=== PATIENT | female | born 2005 | race Two or more races ===

== ENCOUNTER 2025-10-13 23:24 | Emergency (ER) | payer OTHER, SELFPAY ==
--- OUTSIDE RECORDS SUMMARY | 2025-10-11 11:15 | XMS_ITS | Encounter Summary ---
Author Organization [facility] Address [address] [facility] [address] [place] [address] Phone Care Team Providers Care Yard Coupler Name Role Phone Marium Yates MD Primary Care Provider [phone] Encounter Details Date Type Department Care Team ([facility] st Contact Info) Description 10/11/2025 11:15 AM EST Pre-Admission Testing Pre Procedure Evaluation 30 [place] [address] Sajan Riley MD [address] [address] [email or web address] Social History Tobacco Use Types Packs/Day Years Used Date Smoking Tobacco: Never Smokeless Tobacco: Never Alcohol Use Standard Drinks/Week Comments Never 0 (1 standard drink = 0.6 oz pur e alcohol) Education Answer Date Recorded Are you interested in more education? Not on sushila e 02/19/2023 Are you concerned about learning? Not on file 02/19/2023 No 02/19/2023 No 02/19/2023 Digital Access Answer Date Recorded No 03/20/2023 No 03/20/2023 Reliable internet access at home? Not on file 03/20/2023 Device with a working camera? Not on file Intimate Partner Violence Answer Date R ecorded Are you denied basic needs s uch as food, clothing, or medical care? No 10/12/2025 In the past 12 months have y ou been in a relationship with a person who hurts, threatens, or tries to control you? No 10/12/2025 Are you denied basic needs s uch as food, clothing, or medical care? No 10/12/2025 In the past 12 months have y ou been in a relationship with a person who hurts, threatens, or tries to control you? No 10/12/2025 Comments No Sex and Gender Information Value Date Recorded Sex Assigned at Female 07/18/2020 8:21 PM EDT Legal Sex Female 8:44 PM EDT Gender Identity Female 07/18/2020 8:21 PM EDT Sexual Orientation Not on file documented as of this encounter Progress Notes * Charleen Bai RN - 10/11/2025 11:15 AM EST This preprocedure call occurred on October 12, 2025. Reviewed prep instructions. All questions answered. Ride home arranged. Patient verbalized understanding * Charleen Bai RN - 10/11/2025 11:15 AM EST States she doesn't know what she did with her prep instructions-she is not on the patient portal wants them sent to her-office called talked to Niyah documented in this encounter Plan of Treatment Upcoming Encounters Date Type Department Care Team (Latest Contact Info) Description 10/29/2025 Procedure Pass [facility] Admitting Dept Virtual Department [address] [place] [address] 10/29/2025 10:15 AM EST Hospital Encounter [facility] Virtual Department [address] [place] [address] Sajan Riley MD [address] [place] [address] 10/29/2025 10:15 AM EST - 10/29/2025 10:30 AM EST Surgery [facility] Admitting Dept Virtual Department [address] [place] [address] Sajan Riley MD [address] [address] COLONOSCOPY 12/25/2025 9:45 AM EST Office Visit [facility] 10 [place] [address] Ruby Barbosa PA-C [address] [address] [email or web address] Scheduled Procedures Name Priority Associated Diagnoses Date/Ti ma COLONOSCOPY Internal hemorrhoids with complication 10/29/2025 10:15 AM EST documented as of this encounter Visit Diagnoses Not on filedocumented in this encounter Care Teams Yard Coupler Relationship Specialty Start Date End Date Marium Yates MD [address] [place] [address], [facility] 2 [place] [address] PCP - General Pediatrics 07/18/20 documented as of this encounter Additional Source Comments The information contained in this document represents components of the legal health record. It is not the complete legal health record.[facility]
--- NOTE | ~2025-10-13 | US_ITS ---
CLINICAL HISTORY: PAIN, R O TORSION US pelvis transvaginal and transabdominal with Doppler ultrasound Indication: Pain, right Comparison: None provided LMP 09/21/2025 Findings: Transabdominal and transvaginal scanning performed. Anteverted uterus is 6.9 x 4.1 x 4.2 cm. Normal myometrium. Endometrium 7 mm thickness. Right ovary 5.4 x 4.2 x 5.4 cm. There is a 4.9 cm right ovarian complex cyst Left ovary 4.9 x 3.8 x 4.6 cm cm. Normal color Doppler arterial and venous flow of both ovaries. No free fluid. IMPRESSION: 1. Normal pelvic ultrasound 2. Complex 4.9 cm right ovarian cystic lesion without evidence for right ovarian torsion. Recommend follow-up evaluation to document resolution. This document has been electronically signed by: Michael Velazquez III, MD PHD on 10/14/2025 04:40:50
[2025-10-13 23:37] VITALS: BP 127/71; PULSE 104; RESP 16; TEMP 36.6; O2SAT 98; BMI 36.9
[2025-10-14 00:05] LABS: MANUAL DIFF FLAG NO
[2025-10-14 00:11] LABS: Hematocrit 40.1 % (37.0-47.0); Hemoglobin 14.0 g/dl (12.0-16.0); Imm Gran Abs Auto 0.03 X10*3/uL (0.00-0.03); Imm Gran Pct Auto 0.3 % (0.0-0.4); Lymphocytes Absolute Auto 2.9 X10*3/uL (1.2-4.9); Mean Corpuscular HGB Conc 34.9 g/dl (31.0-35.0); Mean Corpuscular Hemoglobin 30.9 pg (27.0-33.0); Mean Corpuscular Volume 88.5 fL (80.0-98.0); NRBC Abs Auto 0.000 X10*3/uL (0.0-0.012); NRBC Pct Auto 0.0 /100WBC (0.0-0.2); Platelet Count 305 X10*3/uL (160-400); Red Blood Count 4.53 X10*6/uL (4.20-5.50); White Blood Count 11.0 X10*3/uL (4.8-10.8)
[2025-10-14 00:17] VITALS: BP 131/84; PULSE 107; RESP 16; TEMP 36.6; O2SAT 98
--- NOTE | 2025-10-14 00:22 | PC.NURSE ---
pt from triage reports 8/10 stabbing/cramping RLQ pain that radiates to LLQ, onset x3 days ago worsening tonight. PT reports secondary complaints of nausea and vaginal/hemorrhoid cramping that onset today. On palpation pts RLQ is tender and firm to the touch.
[2025-10-14 00:27] LABS: Alanine Aminotransferase 11 U/L (0-31); Albumin Level 4.8 g/dL (3.5-5.0); Alkaline Phosphatase 60 U/L (39-117); Anion Gap 13 (12-20); Aspartate Amino Transferase 18 U/L (5-31); Blood Urea Nitrogen 14 mg/dL (9-16); Calcium 9.7 mg/dL (8.4-10.2); Carbon Dioxide 23 mmol/L (22-29); Chloride 108 mmol/L (96-108); Creatinine Clr Calc Pharmacy 112.3; Estimated Glomerular Filt Rate > 60; Potassium 3.7 mmol/L (3.3-5.1); Sodium 140 mmol/L (135-145); Total Protein 7.2 g/dL (6.5-8.0)
--- NOTE | 2025-10-14 00:31 | ED_ITS ---
[facility] - General Adult General Chief complaint: Abdominal Pain Stated complaint: lower abd pain Time Seen by Provider: 10/14/25 00:26 Source: patient Mode of arrival: ambulatory Limitations: no limitations History of Present Illness ED Provider: Dr. Sr [facility] narrative: 20-year-old female history of ovarian cyst presented hospital today for right- sided lower pelvic pain. Also complaining of discomfort upon urination. Last menstrual cycle was 21 of September. She also endorse intermittent pain with this. Along with nausea. She stated this is worsening her hemorrhoids pain in the rectum as well. Related Data Previous Rx's ?Medication ?Instructions ?Recorded cephalexin 500 mg tablet 500 mg PO Q8H #21 tabs 10/14 Allergies Allergy/AdvReac Type Severity Reaction Status Date / Time No Known Allergies Allergy Verified 10/13/25 23:40 Review of Systems 2 Review of Systems: Pertinent review of systems as mentioned in HPI. All other system otherwise negative. [facility] Past Medical History [facility] Narrative: Medical history as mentioned in [facility] Social History Social History Alcohol intake: never Smoked in Last 30 Days: No Use of substances other than those prescribed or required for medical reasons: No Advance Directives: No Advance Directives Information Provided: Yes Do you have a plan to hurt others: No Plan Physical Exam ED Exam Exam: General: Pleasant, no distress, interacting appropriately Head: Normacephalic, atraumatic ENT: oral mucosa moist, neck supple, no tracheal deviation Gastrointestinal: Soft, non distended, Right sided suprapubic pain on palpation Neurological: Awake and alert, no facial droop noted Skin: Warm and dry Psychiatric: Appropriate mood and thoughts Vital Signs: Vital Signs - 24 hr 10/13/25 23:37 10/14/25 00:17 10/14/25 04:01 Temperature 97.9 F 98 F 98.8 F Pulse Rate 104 H 107 H 72 Respiratory Rate 16 16 16 Blood Pressure 127/71 131/84 112/70 Pulse Oximetry 98 98 100 Oxygen Delivery Method Room Air Room Air Room Air BMI result Body Mass Index 36.9 Medications Administered Discontinued Medications Generic Name Dose Route Start Last Admin Trade Name Freq PRN Reason Stop Dose Admin Acetaminophen 975 mg 10/14/25 01:32 10/14/25 01:40 Acetaminophen 325 Mg Tablet PO 10/14/25 01:33 975 mg ONCE ONE Administration Cephalexin HCl 500 mg 10/14/25 01:32 10/14/25 01:40 Cephalexin 500 Mg Capsule PO 10/14/25 01:33 500 mg ONCE ONE Administration Medical Decision Making Medical Decision Making [facility] Narrative: 20-year-old female presented hospital today for right suprapubic pain. It is intermittent in nature. We will obtain a ultrasound to rule out ovarian torsion. A dose of p.o. Tylenol will be given to the patient. I did offer STD testing for the patient however she kindly defers. She has no vaginal discharge no vaginal bleeding. UA did show signs of possible UTI. We will plan to give patient a dose of p.o. Keflex. Patient's lab work did show slight leukocytosis at 11.0. However she does not have any signs of tachycardia of fever. Her ultrasound did shows a right sided complex ovarian cyst. I do not think this is a tubular ovarian abscess. Patient has no tachycardia or fever. The patient appears to be well on my exam. She is not complaining of abnormal vaginal discharge as well. Discussed the finding of the ovarian cyst with the patient. There was no sign of torsion on ultrasound. Referral to OBGYN will be provided the patient encouraged her to follow up with her primary care doctor as well. Patient is agreeable to this plan all questions were addressed. A course of Keflex will be prescribed for her UTI. Differential Diagnosis Differential Diagnoses: The differential diagnosis associated with the presentation includes UTI, STD, ovarian cyst, ovarian torsion Lab Data [facility] Lab Attestation statement: I reviewed the patient's lab results. 10/14/25 00:00 10/14/25 00:00 Labs: Lab Results 10/14/25 10/14/25 Range/Units 00:00 00:29 WBC 11.0 H (4.8-10.8) X10*3/uL RBC 4.53 (4.20-5.50) X10*6/uL Hgb 14.0 (12.0-16.0) g/dl Hct 40.1 (37.0-47.0) % MCV 88.5 (80.0-98.0) fL MCH 30.9 (27.0-33.0) pg MCHC 34.9 (31.0-35.0) g/dl RDW 11.4 (11.0-16.0) % Plt Count 305 (160-400) X10*3/uL MPV 9.5 (9.4-12.3) fL Immature Gran % (Auto) 0.3 (0.0-0.4) % Neut % (Auto) 65.7 (45-73) % Lymph % (Auto) 26.6 (20-40) % Durham % (Auto) 5.9 (2-11) % Eos % (Auto) 0.8 (0-4) % Baso % (Auto) 0.7 (0-2) % Lymph # (Auto) 2.9 (1.2-4.9) X10*3/uL Durham # (Auto) 0.7 (0.1-1.2) X10*3/uL Eos # (Auto) 0.1 (0.0-0.4) X10*3/uL Baso # (Auto) 0.1 (0.0-0.2) X10*3/uL Abs Immat Gran (auto) 0.03 (0.00-0.03) X10*3/uL Absolute Neuts (auto) 7.2 (2.0-8.3) x10*3/uL Absolute Nucleated RBC 0.000 (0.0-0.012) X10*3/uL Nucleated RBC % (auto) 0.0 (0.0-0.2) /100WBC Sodium 140 (135-145) mmol/L Potassium 3.7 (3.3-5.1) mmol/L Chloride 108 (96-108) mmol/L Carbon Dioxide 23 (22-29) mmol/L Anion Gap 13 (12-20) BUN 14 (9-16) mg/dL Creatinine 0.89 (0.5-1.4) mg/dL Estim Creat Clear Calc 112.3 Estimated GFR > 60 Random Glucose 104 (60-115) mg/dL Calcium 9.7 (8.4-10.2) mg/dL Total Bilirubin 0.2 (0.0-1.0) mg/dL AST 18 (5-31) U/L ALT 11 (0-31) U/L Alkaline Phosphatase 60 (39-117) U/L Total Protein 7.2 (6.5-8.0) g/dL Albumin 4.8 (3.5-5.0) g/dL Urine Color Yellow Urine Appearance Cloudy Urine pH 6.5 (5.0-9.0) Ur Specific Artesian <= 1.005 (1.005-1.025) Urine Protein Negative (Neg-Trace) mg/dL Urine Glucose (UA) Negative (Negative) mg/dL Urine Ketones Negative (Negative) mg/dL Urine Blood Negative (Negative) Urine Nitrite Negative (Negative) Ur Leukocyte Esterase Trace H (Negative) Urine RBC 0-2 (0-2) /HPF Urine WBC 6-10 H (0-5) /HPF Ur Squamous Epith Cells 6-10 (0-2) /HPF Urine Bacteria 1+ (None Seen) Hyaline Casts 0-2 (0-2) /LPF Independent Interpretation I performed an independent interpretation of an: Ultrasound Radiology Impression Discussion of test interpretation with radiology: I have reviewed the radiologist's reading. Discharge Plan Discharge Clinical Impression: Ovarian cyst Qualifiers: Laterality: left Qualified Code(s): N83.202 - Unspecified ovarian cyst, left side UTI (urinary tract infection) Qualifiers: Urinary tract infection type: site unspecified Hematuria presence: without hematuria Qualified Code(s): N39.0 - Urinary tract infection, site not specified Patient Disposition: Home, Self-Care Instructions: Ovarian Cyst (ED) Prescriptions: New cephalexin 500 mg tablet 500 mg PO Q8H Qty: 21 0RF Referrals: Flex Vallecillo MD [Physician, MANAGER REPORTING] Clinical Impression: Ovarian cyst Print Language: Hebrew
[2025-10-14 00:34] LABS: Appearance Urine Cloudy; Glucose Urine UA Negative (Negative); PH 6.5 (5.0-9.0); Specific Gravity - Urine <= 1.005 (1.005-1.025); UMIC TRIGGER UACC YES
[2025-10-14 00:39] LABS: UACC Culture Trigger YES
--- OUTSIDE RECORDS SUMMARY | 2025-10-14 00:44 | XMS_ITS | Clinical Summary ---
Author Organization [address] [facility] Address [address] [place] [address] Phone Care Team Providers Care Tape Recording Machine Operator Name Role Phone Marium Yates MD Primary Care Provider Social History Tobacco Use Types Packs/Day Years Used Date Smoking Tobacco: Never Assessed Comments Unknown Sex and Gender Information Value Date Recorded Sex Assigned at Not on file Legal Sex Female 1:35 PM EDT Gender Identity Not on file Sexual Orientation Not on file Plan of Treatment Upcoming Encounters Date Type Department Care Team ([facility] st Contact Info) Description 12/12/2025 9:20 AM EST Consult Gastroenterology - [address] [facility] [address] [phone] Radha Quiroga, JACINTA [address] [address] Health Maintenance Due Date Last Done Comments Gonorrhea/Chlamydia Screening 2003 HPV Vaccines (1 - 3-dose series) 2018 Meningococcal B Vaccine (1 o f 2 - Standard) 2019 DTaP,Tdap,and Td Vaccines (1 - Tdap) 2022 Hepatitis B Vaccines (1 of 3 - 19+ 3-dose series) 2022 Cervical Cancer Screening: P ap Smear 02/10/2024 Depression Screening 10/25/2024 COVID-19 Vaccine (1 - 2024-2 6 season) 2025 Influenza Vaccine (#1) 2025 HIV Screening 07/10/2025 Hepatitis C Screening 07/10/2025 Social Influencers of Health Screening 07/10/2025 RSV Immunization Adult Patie nts (1 - 1-dose 75+ series) 2078 HIB Vaccines Aged Out No longer eligi ble based on patient's age to complete this topic Hepatitis A Vaccines Aged Out No long er eligible based on patient's age to complete this topic IPV Vaccines Aged Out No longer eligi ble based on patient's age to complete this topic MMR Vaccines Aged Out No longer eligi ble based on patient's age to complete this topic Meningococcal ACWY Vaccine Aged Out N o longer eligible based on patient's age to complete this topic Pneumococcal Vaccine: Pediat rics (0 to 5 Years) and At-Risk Patients (6 to 49 Years) Aged Out No longer eligible b ased on patient's age to complete this topic RSV Immunization Patients Un camille 20 months Aged Out No longer eligible b ased on patient's age to complete this topic Varicella Vaccines Aged Out No longer eligible based on patient's age to complete this topic Insurance [facility] Care Teams Tape Recording Machine Operator Relationship Specialty Start Date End Date Marium Yates MD [address] [place] [address] PCP - General Pediatrics 07/10/25
--- OUTSIDE RECORDS SUMMARY | 2025-10-14 00:44 | XMS_ITS | Encounter Summary ---
Author Organization [facility] Address [address] [facility] [address] [place] [address] Phone Care Team Providers Care Immunologist Name Role Phone Marium Yates MD Primary Care Provider [phone] Encounter Details Date Type Department Care Team (Late st Contact Info) Description 05/09/2022 Procedure Pass [facility], Ct Scan - [address] [address] Social History Tobacco Use Types Packs/Day Years Used Date Smoking Tobacco: Never Smokeless Tobacco: Never Alcohol Use Standard Drinks/Week Comments Never 0 (1 standard drink = 0.6 oz pur e alcohol) Comments No Sex and Gender Information Value Date Recorded Sex Assigned at Female 07/18/2020 8:21 PM EDT Legal Sex Female 8:44 PM EDT Gender Identity Female 07/18/2020 8:21 PM EDT Sexual Orientation Not on file documented as of this encounter Plan of Treatment Upcoming Encounters Date Type Department Care Team (Latest Contact Info) Description 10/29/2025 Procedure Pass [facility] Admitting Dept Virtual Department [address] [place] [address] 10/29/2025 10:15 AM [facility] Hospital Encounter [facility] Admitting Dept Virtual Department [address] [place] [address] Sajan Riley MD [address] [place] [address] 10/29/2025 10:15 AM EST - 10/29/2025 10:30 AM EST Surgery [facility] Endoscopy Admitting Dept Virtual Department 30 [place] [address] Sajan Riley MD [address] [address] COLONOSCOPY 12/25/2025 9:45 AM EST Office Visit [facility] Gastroenterology Clinic 10 [place] [address] Ruby Barbosa PA-C [address] [address] [email or web address] Scheduled Procedures Name Priority Associated Diagnoses Date/Ti ak COLONOSCOPY Internal hemorrhoids with complication 10/29/2025 10:15 AM EST documented as of this encounter Visit Diagnoses Not on filedocumented in this encounter Care Teams Immunologist Relationship Specialty Start Date End Date Marium Yates MD [address] [place] [address] 2 [place] [address] PCP - General Pediatrics 07/18/20 documented as of this encounter Additional Source Comments The information contained in this document represents components of the legal health record. It is not the complete legal health record.[facility]
--- OUTSIDE RECORDS SUMMARY | 2025-10-14 00:44 | XMS_ITS | Clinical Summary ---
Author Organization [facility] Address [address] [facility] [address] [place] [address] Phone Care Team Providers Care Chief Console Operator Name Role Phone Marium Yates MD Primary Care Provider Allergies No known active allergies Medications nitrofurantoin (MACROBID) 100 MG capsule Take 1 capsule (100 mg total) by mouth 2 (two) times a day. 9 capsule 0 Active fluticasone furoate (VERAMYST) 27.5 mcg/actuation nasal spray 2 sprays by Nasal route daily. 10 g 12 1 Active Additional Information Patient not taking.Reported on 12/19/2022 albuterol 90 mcg/actuation inhaler Inhale 2 puffs into the lungs every 4 (four) hours. 6.7 g 1 Active Additional Information Patient not taking.Reported on 12/19/2022 hydrocortisone 2.5 % cream Apply topically 2 (two) times a day. 28 g 3 Active Encounters Date Type Department Care Team Description 10/12/[address] [facility] Gastroenterology Clinic 10 [place] [address] Rahda Awad MA PREP 10/11/2025 11:15 AM EST Pre-Admission Testing Pre Procedure Evaluation 30 [place] [address] Sajan Riley MD 09/13/[address] [facility] 10 [place] [address] Crista Echeverria Kalpana Procedure 09/12/2025 1:00 PM EST Office Visit [facility] 10 [place] [address] Unknown, Unknown, Ruby Heath PA-C Internal hemorrhoids with complication (Primary Dx) from Last 3 Months Social History Tobacco Use Types Packs/Day Years [...] PM EDT Sexual Orientation Not on file Last Filed Vital Signs Vital Sign Reading Time Taken Comments Blood Pressure 130/82 09/12/2025 12:50 PM EST Pulse 111 09/12/2025 12:50 PM EST Temperature 37.2 C (99 F) 12/19/2022 7:52 PM EST Respiratory Rate 13 12/20/2022 12:00 AM EST Oxygen Saturation 99% 12/20/2022 12:00 AM EST Inhaled Oxygen Concentration - - Weight 43.9 kg (96 lb 11.2 oz) 09/12/2025 12:50 PM EST Height 160 cm (5' 3 ) 09/12/2025 12:50 PM EST Body Mass Index 17.13 09/12/2025 12:50 PM EST Plan of Treatment Upcoming Encounters Date Type Department Care Team (Latest Contact Info) Description 10/29/2025 Procedure Pass [facility] Endoscopy Admitting Dept Virtual Department [address] [place] [address] 10/29/2025 10:15 AM EST Hospital Encounter [facility] Endoscopy Admitting Dept Virtual Department [address] [place] [address] Sajan Riley MD [address] [address] 10/29/2025 10:15 AM EST - 10/29/2025 10:30 AM EST Surgery [facility] Endoscopy Admitting Dept Virtual Department [address] [place] [address] Sajan Riley MD [address] [address] COLONOSCOPY 12/25/2025 9:45 AM EST Office Visit [facility] 10 [place] [address] Ruby Barbosa PA-C [address] [address] [email or web address] Scheduled Procedures Name Priority Associated Diagnoses Date/Ti me COLONOSCOPY Internal hemorrhoids with complication 10/29/2025 10:15 AM EST Health Maintenance Due Date Last Done Comments DEPRESSION SCREENING 2015 MENINGOCOCCAL VACCINES (B) (1 of 2 - Standard) 2019 PAP SMEAR 02/10/2024 Adult Td,Tdap Booster 12/21/2024 12/21/2014 INFLUENZA VACCINE (#1) 2025 , 10/10/2019, 11/22/2018, Additional history exists COVID-19 VACCINE ( season) 2025 CHLAMYDIA SCREENING 10/09/2025 10/09/2024, 05/09/2022, 03/14/2021, Additional history exists SMOKING Hx and SMOKELESS TOBACCO SCREENING 10/12/2026 10/12/2025 HIB VACCINES Completed 04/24/2004, 07/26, 2003, Additional history exists PNEUMOCOCCAL VACCINES (0-49 years) Aged Out 02/24/2005, 2003, 2003, Additional history exists No longer eligible based on patient's age to complete this topic HPV VACCINES Completed 12/27/2015, 03/2015, 12/21/2014 MENINGOCOCCAL VACCINES (ACWY) Completed 10/10/2019, 12/21/2014 HEPATITIS A VACCINES Completed 03/14/2021, 10/10/20 HEPATITIS C SCREENING Completed 06/21/2025 HIV ONE-TIME SCREENING (18-65 YEARS) Completed 06/21/2025 Medical Devices Not on file Procedures Procedure Name Priority Date/Time Associated Diagnosis Comments HEPATITIS C ANTIBODY, QUALITATIVE Routine 06/21/2025 9:52 AM EDT Encounter for screening for infections with a predominantly sexual mode of transmission CHLAMYDIA TRACHOMATIS AND NEISSERIA GONORRHOEAE NUCLEIC ACID DETECTION Routine 10/09/2024 4:17 PM EST Routine screening for STI (sexually transmitted infection) from Last 3 Months or Most Recently Relevant to Health Maintenance Results * Hepatitis C antibody, qualitative (06/21/2025 9:52 AM EDT) HCV NON-REACTIV E NON-REACTI VE [facility] 06/21/2025 9:52 AM EDT 06/21/2025 9:53 AM EDT us Marium Yates MD LAB BLOOD BKR ORDERABLES Fin al Result [facility] [address] [place] [address] * (ABNORMAL) Chlamydia Trachomatis and Neisseria Gonorrhoeae Nucleic Acid Detection (10/09/2024 4:17 PM EST) CHLAMYDIA TRACHOMATIS Detected(A) Not Detected [facility] NEISERIA GONORRHOEAE Not Detected Not Detected [facility] SPECIMEN TYPE swab [facility] Urine (Urine) 10/09/2024 4:1 7 PM EST 10/09/2024 4:19 PM EST Marium Yates MD LAB GENERAL ORDERABLES Final Result [facility] [address] [place] [address] from Last 3 Months or Most Recently Relevant to Health Maintenance Insurance [facility] [place] [address] [facility] Care Teams Chief Console Operator Relationship Specialty Start Date End Date Marium Yates MD [address] [place] [address], [address] [place] [address] [email or web address] PCP - General Pediatrics 07/18/20 Additional Source Comments The information contained in this document represents components of the legal health record. It is not the complete legal health record.[facility]
--- OUTSIDE RECORDS SUMMARY | 2025-10-14 00:44 | XMS_ITS | Encounter Summary ---
Author Organization [facility] Address [address] [address] [place] [phone] Phone Care Team Providers Care Blasting Cap Assembler Name Role Phone Marium Yates MD Primary Care Provider + [phone] Reason for Visit * Reason Onset Date Comments PREP 10/12/2025 Encounter Details Date Type Department Care Team ([facility] st Contact Info) Description 10/12/2025 Telephone [facility] [address] [place], [place] [phone] Radha Awad ND [address] [place], [place] [phone] [email or web address] PREP Social History Tobacco Use Types Packs/Day Years [...] as of this encounter Progress Notes * Radha Awad MA - 10/12/2025 10:53 AM EST PT NEEDS PREP INSTRUCTIONS MAILED TO HER PER SARAH CALLED PT SHE WILL SET UP HER PORTAL AND REQ PREP WHEN SHE'S DONE documented in this encounter Plan of Treatment Upcoming Encounters Date Type Department Care Team (Latest Contact Info) Description 10/29/2025 Procedure Pass [facility]oscopy Admitting Dept Virtual Department [address] [place] [phone] 10/29/2025 10:15 AM EST Hospital Encounter [facility] Virtual Department [address] [place] [phone] Sajan Riley MD [address] [place] [phone] 10/29/2025 10:15 AM EST - 10/29/2025 10:30 AM EST Surgery [facility] Admitting [facility] Virtual Department [address] [place] [phone] Sajan Riley MD [address] [place] [id number] COLONOSCOPY 12/25/2025 9:45 AM EST Office Visit [facility] [address] [place] [address] Ruby Barbosa PA-C [address] [phone] [email or web address] Scheduled Procedures Name Priority Associated Diagnoses Date/Ti me COLONOSCOPY Internal hemorrhoids with complication 10/29/2025 10:15 AM EST documented as of this encounter Visit Diagnoses Not on filedocumented in this encounter Care Teams Blasting Cap Assembler Relationship Specialty Start Date End Date Marium Yates MD [address] [place] [phone], [facility] [address] [place] [address] PCP - General Pediatrics 07/18/20 documented as of this encounter Additional Source Comments The information contained in this document represents components of the legal health record. It is not the complete legal health record.[facility]
[2025-10-14 04:01] VITALS: BP 112/70; PULSE 72; RESP 16; TEMP 37.1; O2SAT 100
[2025-10-14 05:03] VITALS: BP 112/70; PULSE 72; RESP 16; TEMP 37.1; O2SAT 100
== END 2025-10-14 05:04 | disposition home or self-care (01) ==
PROVIDERS: Emergency Provider Student in an Organized Health Care Education/Training Program; PCP Pediatrics
DX: N83.202 Unspecified ovarian cyst, left side (principal); N39.0 Urinary tract infection, site not specified; R10.21 Pelvic and perineal pain right side
CPT/HCPCS: 36415; 76830; 76856; 80053; 81001; 85025; 87086; 93975; 99284

== ENCOUNTER → 2025-10-14 03:15 | Outpatient (BNV) | payer OTHER, SELFPAY | PROVIDERS: Emergency Provider Student in an Organized Health Care Education/Training Program; PCP Pediatrics; Visit Provider Radiology Diagnostic Radiology | DX: N83.291 Other ovarian cyst, right side (principal) | CPT/HCPCS: 76830; 76856 ==